=== PATIENT | male | born 1955 | race Caucasian/White ===

== ENCOUNTER 2019-04-10 11:49 | Observation (INO) | payer MEDICARE ==
[~2019-04-10] VITALS: Ht 180.3 cm; Wt 90.1 kg
[2019-04-10] MEDS ORDERED: ASPIRIN 325 MG TABLET ONE (12:01)
[2019-04-10] MEDS ORDERED: NITROGLYCERIN 0.4 MG SL TAB SL ONE (12:02)
[2019-04-10] MEDS ORDERED: SODIUM CHLORIDE 0.9% 1000ML 1,000 ML IV ONE (12:02)
[2019-04-10] MEDS ORDERED: NITROGLYCERIN 50 MG/D5% WATER 1 BOT ONE (12:06)
[2019-04-10 12:22] LABS: BASOPHILS % (AUTO) 0.5 % (0.0-5.0); EOSINOPHILS % (AUTO) 0.7 % (0.0-8.0); LYMPHOCYTES % (AUTO) 7.3 % (21.0-51.0); MEAN CORPUSCULAR HEMOGLOBIN 30.1 pg (27.0-33.0); MEAN CORPUSCULAR HGB CONC 33.5 g/dL (32.0-36.0); MONOCYTES % (AUTO) 16.1 % (3.0-13.0); NEUTROPHILS % (AUTO) 75.4 % (40.0-77.0); PLATELET COUNT (AUTO) 280 K/uL (130-400); RED BLOOD CELL COUNT(AUTO) 5.12 MIL/uL (4.50-6.20); RED CELL DISTRIBUTION WIDTH 13.9 % (11.0-15.5); WHITE BLOOD COUNT (AUTO) 13.3 K/uL (4.8-10.8)
[2019-04-10 12:34] LABS: CARBON DIOXIDE 22 mmol/L (21-32); CHLORIDE 106 mmol/L (101-111); CREATININE 1.3 mg/dL (0.5-1.5); GLOMERULAR FILTR. RATE CALC 59 mL/min (>60); GLUCOSE,RANDOM 147 mg/dL (70-105); POTASSIUM 3.8 mmol/L (3.5-5.1); SODIUM SERUM 141 mmol/L (136-145); UREA NITROGEN, BLOOD 8 mg/dL (7-18)
[2019-04-10 12:35] LABS: PARTIAL THROMBOPLASTIN TIME 31.6 SEC (26.3-35.5); PROTHROMBIN TIME 10.5 SEC (9.6-11.6)
[2019-04-10 12:45] LABS: ALANINE AMINOTRANSFERASE 20 U/L (12-78); ALBUMIN 3.1 g/dL (3.5-5.0); ASPARTATE AMINOTRANSFERASE 20 U/L (10-37); CREATINE KINASE, TOTAL 53 U/L (21-232); MYOGLOBIN 50 ng/mL (10-92); TROPONIN I < 0.04 ng/mL (0.00-0.06)
[2019-04-10] MEDS ORDERED: NAPROXEN 250 MG TAB PO PRN (12:45)
[2019-04-10] MEDS ORDERED: NITROGLYCERIN 0.4 MG SL TAB SL PRN (14:45)
[2019-04-10] MEDS ORDERED: NAPROXEN 250 MG TAB PO SCH (15:00)
[2019-04-10 16:35] VITALS: BP 127/85
[2019-04-10 19:59] VITALS: BP 157/73
[2019-04-10 20:01] VITALS: BP 116/70
[2019-04-10 20:45] LABS: CREATINE KINASE, TOTAL 28 U/L (21-232); MYOGLOBIN 63 ng/mL (10-92); TROPONIN I < 0.04 ng/mL (0.00-0.06)
[2019-04-10] MEDS: FAMOTIDINE 20MG TAB 20 MG TAB PO SCH (21:02)
[2019-04-10 22:28] LABS: APPEARANCE,URINE Clear (CLEAR); BILIRUBIN,URINE Negative (NEGATIVE); COLOR,URINE Yellow (YELLOW); GLUCOSE, URINE (UA) Negative (NEGATIVE); KETONES,URINE 15 mg/dL (NEGATIVE); LEUKOCYTE ESTERASE ,URINE Negative (NEGATIVE); NITRATE,URINE Negative (NEGATIVE); OCCULT BLOOD,URINE Negative (NEGATIVE); PROTEIN,URINE POS 1+ mg/dL (NEGATIVE)
[2019-04-10 22:56] LABS: BACTERIA,URINE Rare /HPF (None Seen); MUCUS,URINE Few LPF (None Seen); RBC,URINE None Seen /HPF (0-1); SQUAMOUS EPITHELIAL CELL,UR Few /HPF (0-2); WBC,URINE None Seen /HPF (0-1)
[2019-04-10 23:33] VITALS: BP 104/61
[2019-04-11 03:17] VITALS: BP 100/66
[2019-04-11 04:10] LABS: MEAN CORPUSCULAR HEMOGLOBIN 30.2 pg (27.0-33.0); MEAN CORPUSCULAR HGB CONC 33.4 g/dL (32.0-36.0); MEAN CORPUSCULAR VOLUME 90.5 fL (79-99); NUCLEATED RED BLOOD CELLS 0.1 % (0.0-0.19); PLATELET COUNT (AUTO) 278 K/uL (130-400); RED BLOOD CELL COUNT(AUTO) 4.64 MIL/uL (4.50-6.20); RED CELL DISTRIBUTION WIDTH 13.9 % (11.0-15.5); WHITE BLOOD COUNT (AUTO) 12.7 K/uL (4.8-10.8)
[2019-04-11 04:26] LABS: BAND NEUTROPHILS % (MANUAL) 3 % (0-2); EOSINOPHILS % (MANUAL) 4 % (1-6); LYMPHOCYTES % (MANUAL) 32 % (22-44); MAN.DIFF COMMENT-IMPRESSION MANUAL DIFFERENTIAL; MONOCYTES % (MANUAL) 17 % (2-9); PLATELET MORPHOLOGY COMMENT ADEQUATE; SEGMENTED NEUTROPHILS % 44 % (40-70)
[2019-04-11 04:32] LABS: CREATININE 1.3 mg/dL (0.5-1.5); POTASSIUM 3.8 mmol/L (3.5-5.1)
[2019-04-11 05:14] LABS: ERYTHROCYTE SEDIMENTATION RATE 60 MM/HR (0-20)
[2019-04-11 05:44] LABS: CRP QUANTITATIVE 224.9 mg/L (0.00-9.0)
[2019-04-11] MEDS ORDERED: NAPR-1192 PO (06:36)
[2019-04-11 07:32] VITALS: BP 91/64
[2019-04-11] MEDS ORDERED: ENOXAPARIN SODIUM 40 MG/0.4 ML SYRINGE SQ SCH (09:00)
[2019-04-11] MEDS: FAMOTIDINE 20MG TAB 20 MG TAB PO SCH (09:34)
[2019-04-11] MEDS ORDERED: NAPR-1113 PO (09:56)
== END 2019-04-11 11:14 | disposition home or self-care (01) ==
LOC: EDH 11:49 → EDHIP 14:39 → 2CH 16:31
PROVIDERS: ADMIT Internal Medicine; ATTEND Internal Medicine
DX: I30.9 Acute pericarditis, unspecified (principal); I10 Essential (primary) hypertension; E78.5 Hyperlipidemia, unspecified; Z87.891 Personal history of nicotine dependence
CPT/HCPCS: 36415 ×2; 71045; 80048; 80053; 81001; 82550 ×2; 83605; 83874 ×2; 84145; 84484 ×2; 85025 ×2; 85610; 85651; 85730; 86140; 87040 ×2; 87088; 93005; 93306; 96372; 99291; G0378 ×20; J1650; J3490; J7030

== ENCOUNTER → 2019-05-19 | Outpatient (CLI) | payer MEDICARE ==
[~2019-05-19] VITALS: Ht 180.3 cm; Wt 90.1 kg
[~2019-05-19] MED LIST: NAPR-1113 PO; NAPR-1192 PO; REGADENOSON 0.4 MG/5 ML PF SYG IVP SCH
== END | disposition home or self-care (01) ==
LOC: SHCH 08:04
PROVIDERS: ATTEND Internal Medicine Cardiovascular Disease
DX: I21.29 ST elevation (STEMI) myocardial infarction involving other sites (principal)
CPT/HCPCS: 78452; 93017; 96374; A9500 ×2; J2785

== ENCOUNTER 2022-04-24 00:36 | Emergency (ER) | payer MEDICARE ==
[~2022-04-24] VITALS: Ht 180.3 cm; Wt 96.2 kg
[~2022-04-24 00:36] MED LIST changes: -REGADENOSON 0.4 MG/5 ML PF SYG IVP SCH
[2022-04-24] MEDS ORDERED: IPRATROPIUM/ALBUTEROL SULFATE 3 ML SOLUTION IH ONE (04:15)
[2022-04-24] MEDS ORDERED: TETANUS/DIPHTHERIA TOXOID [ADULT] 0.5 ML VIAL IM ONE (04:29)
[2022-04-24 04:37] VITALS: BP 132/74
== END 2022-04-24 04:40 | disposition home or self-care (01) ==
LOC: EDH 00:36
DX: S01.111A Laceration without foreign body of right eyelid and periocular area, initial encounter (principal); J40 Bronchitis, not specified as acute or chronic; E78.00 Pure hypercholesterolemia, unspecified; K21.9 Gastro-esophageal reflux disease without esophagitis; I10 Essential (primary) hypertension; Z79.899 Other long term (current) drug therapy; W01.0XXA Fall on same level from slipping, tripping and stumbling without subsequent striking against object, initial encounter; Y93.89 Activity, other specified; Y92.89 Other specified places as the place of occurrence of the external cause; Y99.8 Other external cause status
CPT/HCPCS: 12013; 12052; 70450; 90471; 90714